=== PATIENT | female | born 1970 | race Two or more races ===

== ENCOUNTER 2023-11-20 08:32 | Emergency (ER) | payer OTHER ==
[~2023-11-20] VITALS: Ht 167.6 cm; Wt 81.6 kg
[2023-11-20] MEDS ORDERED: CEFTRIAXONE SODIUM 1,000 MG VIAL IM STA (10:23)
[2023-11-20] MEDS ORDERED: ZITHROMAX500 MG PO (11:52)
== END 2023-11-20 12:53 | disposition home or self-care (01) ==
LOC: ER 08:33
DX: R53.81 Other malaise (principal); J03.90 Acute tonsillitis, unspecified; H66.93 Otitis media, unspecified, bilateral; I10 Essential (primary) hypertension; Z20.822 Contact with and (suspected) exposure to COVID-19